=== PATIENT | male | born 2000 | race African-American/Black ===

== ENCOUNTER 2023-12-16 14:33 | Inpatient (IN) | payer MEDICARE, OTHER ==
[~2023-12-16] VITALS: Ht 170.2 cm; Wt 67.6 kg
[2023-12-16 18:40] LABS: ADD RBC MORPHOLOGY YES; BASOPHILS % 0.7 % (0.0-2.0); DIFFERENTIAL COMMENT 1; EOSINOPHILS % 1.6 % (0.0-5.0); HEMATOCRIT. 38.7 % (42.0-52.0); HEMOGLOBIN. 11.1 g/dL (14.0-18.0); LYMPHOCYTES % 33.5 % (20.0-50.0); MEAN CORPUSCULAR HEMOGLOBIN 19.1 pg (28.0-32.0); MEAN CORPUSCULAR HGB CONC 28.6 g/dL (31.0-37.0); MEAN CORPUSCULAR VOLUME 66.7 fL (80.0-94.0); MEAN PLATELET VOLUME 8.6 fl (7.4-10.4); MONOCYTES % 7.2 % (2.0-8.0); PLATELET 403 x1000/uL (130-400); RED BLOOD CELL COUNT 5.81 mill/uL (4.7-6.1); RED CELL DISTRIBUTION WIDTH 26.7 % (11.6-14.6); WHITE BLOOD COUNT 5.4 x1000/uL (4.5-11.0)
[2023-12-16 18:53] LABS: CHLORIDE 107 mEq/L (98-107); POTASSIUM 4.1 mEq/L (3.5-5.1); SODIUM 139 mEq/L (136-145)
[2023-12-16 18:54] LABS: CALCIUM 9.8 mg/dL (8.7-10.4); CARBON DIOXIDE 27 mEq/L (21-32)
[2023-12-16 18:55] LABS: ANISOCYTOSIS 2+; HYPOCHROMASIA 2+; MICROCYTOSIS 3+; OVALOCYTES 1+; PLATELET ESTIMATE SLIGHTLY INCREASED
[2023-12-16 18:59] LABS: CREATININE 0.6 mg/dL (0.6-1.3); GLUCOSE 75 mg/dL (70-105); UREA NITROGEN BLOOD 8 mg/dL (9-23)
[2023-12-16 19:01] LABS: ACETAMINOPHEN < 2 ug/mL (10-30); ALANINE AMINOTRANSFERASE 15 IU/L (10-49); ALBUMIN 4.8 g/dL (3.2-4.8); ASPARTATE AMINOTRANSFERASE 21 IU/L (<34)
[2023-12-16 19:02] LABS: BILIRUBIN TOTAL 0.3 mg/dL (0.1-1.0); PROTEIN TOTAL 9.5 g/dL (6.0-8.3)
[2023-12-16 19:09] LABS: BILIRUBIN DIRECT < 0.1 mg/dL (<=3.0); ETHANOL BLOOD < 10 mg/dL (<10)
[2023-12-16] MEDS: ACETAMINOPHEN 325MG TABLET PO ONE (20:05)
[2023-12-16] MEDS ORDERED: ACETAMINOPHEN 325MG TABLET PO PRN (22:45)
[2023-12-16] MEDS ORDERED: CLONIDINE 0.1MG TABLET PO PRN (22:45)
[2023-12-16] MEDS ORDERED: DOCUSATE SODIUM 100MG CAPSULE PO PRN (22:45)
[2023-12-16] MEDS ORDERED: GUAIFENESIN 200MG/10ML SUGAR FREE UDC PO PRN (22:45)
[2023-12-16] MEDS ORDERED: ONDANSETRON HCL 4MG/2ML INJ IV PRN (22:45)
[2023-12-16] MEDS ORDERED: MAGNESIUM/ALUMINUM HYDROXIDE/SIMETHICONE 30ML UDC PO PRN (22:45)
[2023-12-16] MEDS ORDERED: IPRATROPIUM/ALBUTEROL 0.5-3(2.5)MG/3ML NEB HHN PRN (22:45)
[2023-12-16] MEDS: HYDROCODONE/ACETAMINOPHEN 5/325MG TABLET PO PRN (23:41)
[2023-12-17] MEDS: MORPHINE SULFATE 2 MG/ML CPJ (NOT FOR IM USE) IV NR (02:57)
[2023-12-17 04:00] VITALS: BP 120/64; PULSE 83; RESP 20
[2023-12-17] MEDS: ENOXAPARIN 40MG/0.4ML SYR SUBCUT SCH (08:51)
[2023-12-17] MEDS: HYDROCODONE/ACETAMINOPHEN 7.5/325MG TABLET PO PRN (11:44)
[2023-12-17] MEDS ORDERED: NALOXONE HCL 0.4MG/ML VIAL IV PRN (11:45)
[2023-12-17 12:00] VITALS: BP 128/70; PULSE 82; RESP 20; TEMP 98.2
[2023-12-17 16:00] VITALS: BP 130/70; PULSE 70; RESP 20; TEMP 98.2
[2023-12-17 20:00] VITALS: BP 107/73; PULSE 100; RESP 20
[2023-12-18 08:00] VITALS: BP 104/76; PULSE 108; RESP 19
[2023-12-18] MEDS: HYDROCODONE/ACETAMINOPHEN 7.5/325MG TABLET PO PRN (09:04)
[2023-12-18 09:58] LABS: CLARITY URINE CLOUDY (CLEAR); COLOR URINE YELLOW (YELLOW); GLUCOSE URINE NEGATIVE (NEGATIVE); KETONES URINE NEGATIVE (NEGATIVE); LEUKOCYTE ESTERASE URINE 3+ (NEGATIVE); NITRITE URINE POSITIVE (NEGATIVE); OCCULT BLOOD URINE 3+ (NEGATIVE); PROTEIN URINE 1+ (NEGATIVE); SPECIFIC GRAVITY URINE 1.007 (1.005-1.030); UROBILINOGEN URINE 0.2 E.U./dL (0.2-1.0)
[2023-12-18 10:59] LABS: CALCIUM OXALATE CRYSTALS URINE 1+ /lpf; MUCUS URINE 2+ /lpf (NONE/TRACE)
[2023-12-18 11:01] LABS: WBC URINE TNTC /hpf (0-2)
[2023-12-18 11:04] LABS: SQUAMOUS EPITHELIAL CELL URINE FEW /lpf (RARE/1+)
[2023-12-18 11:05] LABS: BACTERIA URINE 3+
[2023-12-18] MEDS: CEFTRIAXONE 1GM/50ML 50 ML IV SCH (15:00)
[2023-12-19] MEDS: NITROFURANTOIN 100MG M/M CAPSULE PO SCH (00:23)
[2023-12-19 12:00] VITALS: BP 105/69; PULSE 115; RESP 18; TEMP 98.1
[2023-12-19 16:00] VITALS: BP 118/78; PULSE 91; RESP 18; TEMP 98.1
[2023-12-19 20:00] VITALS: BP 110/72; PULSE 101; RESP 19; TEMP 97.5
[2023-12-20 04:00] VITALS: BP 112/68; PULSE 104; RESP 19; TEMP 98.2
[2023-12-20 08:00] VITALS: BP 106/66; PULSE 110; RESP 20; TEMP 98.1
[2023-12-20 12:00] VITALS: BP 110/71; PULSE 111; RESP 20; TEMP 97.9
[2023-12-20] MEDS ORDERED: NITR100C11 PO (15:35)
[2023-12-20 15:48] VITALS: BP 110/71; PULSE 111; TEMP 97.8; O2SAT 93
[2023-12-20 16:00] VITALS: BP 113/76; PULSE 73; RESP 18; TEMP 97.9
[2023-12-20 20:00] VITALS: BP 109/68; PULSE 140; RESP 18; TEMP 98.8
== END 2023-12-21 12:12 | disposition home health service (06) | DRG 698 ==
LOC: ER 14:33 → EDBD 14:33 → EDBEDREQ 19:16 → 6EST 22:42
PROVIDERS: ADMIT Hospitalist; ATTEND Hospitalist
DX: T83.518A Infection and inflammatory reaction due to other urinary catheter, initial encounter (principal); L89.154 Pressure ulcer of sacral region, stage 4; L89.324 Pressure ulcer of left buttock, stage 4; N39.0 Urinary tract infection, site not specified; G82.20 Paraplegia, unspecified; T76.01XA Adult neglect or abandonment, suspected, initial encounter; D50.9 Iron deficiency anemia, unspecified; D75.839 Thrombocytosis, unspecified; R62.7 Adult failure to thrive; G89.4 Chronic pain syndrome; W34.00XA Accidental discharge from unspecified firearms or gun, initial encounter; Z93.3 Colostomy status; Y93.89 Activity, other specified; Y92.89 Other specified places as the place of occurrence of the external cause; Z74.01 Bed confinement status
CPT/HCPCS: 36415; 71045; 80048; 80076; 80307; 80320; 80329; 81003; 85025; 87186; 97166; 97530; 99285; J0696; J1650; J2270; G0480

== ENCOUNTER 2024-09-05 01:49 | Emergency (ER) | payer MEDICARE, MEDICAID ==
[~2024-09-05] VITALS: Ht 177.8 cm; Wt 63.0 kg
[~2024-09-05 01:49] MED LIST: FLUO10TA35 PO; OLAN10TA72 PO; OXYC-105 MT
[2024-09-05 01:54] VITALS: TEMP 36.6; O2SAT 100
[2024-09-05 04:37] VITALS: BP 112/73; PULSE 115; RESP 18; O2SAT 99
[2024-09-05] MEDS: SODIUM CHLORIDE 0.9% 1,000 ML IV ONE (04:37)
[2024-09-07] MEDS ORDERED: CEPH500T MT (16:52)
== END 2024-09-05 04:44 | disposition home or self-care (01) ==
LOC: ER 01:49
DX: T14.8XXA Other injury of unspecified body region, initial encounter (principal); G82.20 Paraplegia, unspecified; R62.7 Adult failure to thrive; F32.A Depression, unspecified; Z93.3 Colostomy status; Z79.899 Other long term (current) drug therapy; X58.XXXA Exposure to other specified factors, initial encounter; Y93.89 Activity, other specified; Y92.89 Other specified places as the place of occurrence of the external cause; Y99.8 Other external cause status
CPT/HCPCS: 99283; J7030